=== PATIENT | female | born 2005 ===

== ENCOUNTER 2024-05-13 15:53 | Outpatient (CLI) | payer OTHER, SELFPAY ==
[2024-05-13 18:52] LABS: Rapid Plasma Reagin Non-Reactive (NonReactive)
[2024-05-13 18:57] LABS: Basophils Percent Auto 0.2 % (0.2-1.2); Eosinophils Percent Auto 0.4 % (0-4.4); Hematocrit 34.6 % (37.0-47.0); Hemoglobin 11.1 g/dL (12.0-15.0); Immature Granulocyte Absolute 0.04 K/mm3 (0.00-0.031); Immature Granulocyte Percent A 0.4 % (0-0.5); Lymphocytes Absolute Auto 2.11 K/mm3 (0.9-3.2); Lymphocytes Percent Auto 20.5 % (18.3-44.2); Mean Corpuscular HGB Conc 32.1 g/dl (32-36); Mean Corpuscular Hemoglobin 26.7 pg (26-34); Mean Corpuscular Volume 83.4 fl (80-100); Mean Platelet Volume 9.6 fl (7.4-10.4); Monocytes Absolute Auto 0.7 K/mm3 (0.1-0.6); Neutrophils Absolute Auto 7.3 K/mm3 (1.3-6.7); Neutrophils Percent Auto 71.5 % (45.5-73.1); Platelet Count Result 440 k/mm3 (150-375); Red Blood Count 4.15 M/mm3 (4.2-5.4); Red Cell Distribution Width 13.7 % (11.5-14.5); White Blood Count 10.3 K/mm3 (4.5-10.0)
[2024-05-13 19:39] LABS: Hepatitis B Surface Antigen Negative (Negative)
[2024-05-13 19:54] LABS: HIV 1/2 Ab P24 Ag Result Negative (Negative)
[2024-05-15 13:19] LABS: CMV IgG Antibody 0.71 U/mL; Varicella IgG Antibody <135.00 index
[2024-05-24 11:14] LABS: CF Result NEGATIVE (NEGATIVE)
== END 2024-05-13 15:54 | disposition home or self-care (01) ==
PROVIDERS: Visit Provider Student in an Organized Health Care Education/Training Program
DX: Z34.90 Encounter for supervision of normal pregnancy, unspecified, unspecified trimester (principal); Z3A.00 Weeks of gestation of pregnancy not specified
CPT/HCPCS: 36415; 81220; 84702; 85025; 85660; 86592; 86644; 86703; 86747; 86787; 86850; 86900; 86901; 87086; 87340; G0432